=== PATIENT | male | born 1950 | race Caucasian/White ===

== ENCOUNTER 2016-08-14 05:11 | Inpatient (IN) | payer MEDICARE, OTHER ==
[2016-08-12 13:44] LABS: BASOPHILS 0.3 %; BASOPHILS ABSOLUTE 0.02 10/3/uL (0.0-0.16); EOSINOPHILS 3.4 %; HEMATOCRIT 45.8 % (40.0-51.0); HEMOGLOBIN 15.8 g/dL (13.6-17.8); IMMATURE GRANULOCYTES 0.2 %; IMMATURE GRANULOCYTES ABSOLUTE 0.01 10/3/uL (0.0-0.11); LYMPHOCYTES 20.4 %; MEAN CORPUS HGB CONC 34.5 g/dL (32.0-36.0); MEAN CORPUSCULAR HEMOGLOB 32.4 pg (26.0-34.0); MEAN PLATELET VOLUME 11.4 fL (9.2-13.0); MONOCYTES 6.8 %; NEUTROPHILS 68.9 %; NEUTROPHILS ABSOLUTE 4.06 10/3/uL (2.02-8.40); PLATELET COUNT 192 10/3/uL (150-400); RBC DISTRIBUTION WIDTH 13.2 % (12.0-16.0); RED CELL COUNT 4.87 10/6/uL (4.7-6.1); WHITE BLOOD CELLS 5.9 10/3/uL (4.5-10.5)
[2016-08-12 13:45] LABS: MANUAL DIFF NO %
[2016-08-12 13:48] LABS: INTERNATIONAL NORMAL RATI 1.1 UNITS (-); PARTIAL THROMBO TIME 26.5 SEC (22.5-37.2); PROTIME (NOT ORD) 13.6 SEC (12.0-14.5)
[2016-08-12 13:54] LABS: A/G RATIO 1.4 (0.7-1.9); ALBUMIN 3.8 G/DL (3.5-5.0); ALKALINE PHOSPHATASE 105 U/L (45-117); BUN (BLOOD UREA NITROGEN) 11 MG/DL (6-23); CALCIUM, SERUM 9.6 MG/DL (8.5-10.4); CHLORIDE, SERUM 103 MMOL/L (96-112); CO2 (CARBON DIOXIDE) 30 MMOL/L (24-34); GFR AFRICAN AMERICAN 114 ML/MIN (>=60); GFR NON AFRICAN AMERICAN 98 ML/MIN (>=60); GLOBULIN 2.8 G/DL (2.5-4.1); GLUCOSE, SERUM 140 MG/DL (60-99); POTASSIUM, SERUM 4.6 MMOL/L (3.5-5.3); SGOT(AST) 15 U/L (5-40); SGPT(ALT) 25 U/L (5-65); SODIUM, SERUM 144 MMOL/L (135-148); TOTAL BILIRUBIN 1.2 MG/DL (0-1.2); TOTAL PROTEIN 6.6 G/DL (6.0-8.5)
[2016-08-12 15:31] LABS: ASCORBIC ACID (UR NOT ORDER) NEG (NEG); BILIRUBIN, URINE NEGATIVE (NEG); KETONE, URINE NEGATIVE (NEG); LEUKOCYTE ESTERASE(NOT OR SMALL (NEG); WBC (NOT ORDERED) (RFLEX) 6 (0-5)
--- NOTE | ~2016-08-14 | OP ---
Record Of Operation [facility] [address] [place]. [address] NAME: SAIDA SANCHEZ : 50 STATUS : ADM IN PAT#: [id number] AGE: 66 ADM/REG DATE : 08/14/16 MR#: [id number] REPORT SERV DATE: 08/14/16 DICTATED BY: MARIN FIGUEROA DATE: 08/14/16 REPORT STATUS : Draft TRANSCRIBED BY: MODL DATE: 08/14/16 DATE OF PROCEDURE: 08/14/2016 PREOPERATIVE DIAGNOSIS: Severe osteoarthritis of the left hip. POSTOPERATIVE DIAGNOSIS: Severe osteoarthritis of the left hip. PROCEDURE: Left total hip arthroplasty. SURGEON: Marin Figueroa M.D. DUMP ATTENDANT: Ezequiel Major. ANESTHESIA: General endotracheal. ESTIMATED BLOOD LOSS: 300 mL. COMPLICATIONS: None. DRAINS: ConstaVac x1. IMPLANTS: DePuy Philip 58 mm outer diameter cup with a 36 mm inner diameter, +4 lateralized polyethylene liner. The femoral component was size 9 high offset Belle stem with a 36 mm +5 head and neck segment. INDICATIONS FOR SURGERY: Mr. Sanchez is a 66-year-old male with severe osteoarthritis of his left hip. He has had unremitting pain, which has been refractory to medical management. He presents requesting the above-mentioned procedure. Risks of the procedure as detailed in the history and physical and operative consent were discussed prior to proceeding. He fully understood and has requested to proceed. PROCEDURE IN DETAIL: The patient was brought to the operating room and after adequate induction of anesthesia, was positioned in the lateral decubitus position using the hip shoe stamper positioners. All appropriate pressure points were padded and axillary roll was placed. The appropriate operative site was identified and confirmed by both the surgeon and the operating room staff in time out. The hip was then prepped and draped in the usual sterile fashion. A posterior lateral approach to the hip was performed. The skin and subcutaneous tissues were incised sharply using a #10 blade. Electrocautery was used as needed to maintain hemostasis. The fascia reji and fascia over the gluteus kalie were divided in line with the incision. The fibers of the gluteus kalie were split bluntly. The sciatic nerve was identified and carefully protected throughout the remainder of the case. The Charnley retractor was then placed. The hip was placed in internal rotation and the superior border of the piriformis tendon identified. A full thickness capsulotomy was begun Record Of Operation [place] [id number] [facility] [place]. [address] NAME: SAIDA SANCHEZ : 50 STATUS : ADM IN PAT#: [id number] AGE: 66 ADM/REG DATE : 08/14/16 MR#: [id number] REPORT SERV DATE: 08/14/16 DICTATED BY: MARIN FIGUEROA DATE: 08/14/16 REPORT STATUS : Draft TRANSCRIBED BY: WILLARD DATE: 08/14/16 at the superior border of the piriformis tendon and extended anteriorly/inferiorly using an inside/out technique. A portion of the short external rotators were taken down in the capsular exposure. Leg length measurements were then taken. The hip was then dislocated posteriorly. The femoral neck was then marked and resected at the predetermined level from templating using an oscillating saw. Attention was then turned to the femur and the medial aspect of the greater trochanter was debrided of all cortical bone and soft tissue. The intramedullary canal was opened with a triple reamer. The femur was then sequentially reamed to the appropriate size Belle stem. The femur was then sequentially broached, once again to the appropriately sized implant. The femoral neck resection was slightly revised using a calcar mill to bring it to the level of the femoral broach. The broach was then removed. Attention was then turned to the acetabulum and the acetabulum was debrided of all labral remnants, osteophytes, and the medial fibrofatty tissue was debrided and the true medial wall of the acetabulum identified. The acetabulum was then sequentially reamed from a size 43 mm hemispherical reamer to a reamer 1 mm smaller than the final component. At this level there was circumferential bleeding of subchondral bony surface. Any subchondral cysts were curetted. The true acetabular cup was then impacted into the acetabulum and a trial liner placed. A trial reduction was then performed. The leg lengths were felt to be equal. The hip was stable at its limited extension and external rotation and to 90 degrees of flexion and 80 degrees of internal rotation. The hip was also stable in the position of sleep. At this point all trial components were removed and the acetabular hole cork grinder placed in the acetabular shell. The true acetabular liner was then impacted in the clean acetabular shell. The femoral canal was then copiously irrigated with normal saline and suctioned dry. The true femoral stem was then impacted into the femur to an identical depth and identical anteversion of the trial component. A trial reduction was once again performed to assure that there was no change in leg length or stability. The true femoral head ball was then impacted into the clean femoral taper. The acetabulum was inspected to be sure it was free of all foreign matter and the hip reduced. The wound was copiously irrigated with pulsatile lavage and normal saline. The capsule was repaired using interrupted #1 Vicryl suture in [id number] fashion. The short external rotators were repaired using #5 Ethibond in horizontal mattress fashion. Drain placed deep to the fascia. The fascia was closed with interrupted #5 Ethibond sutures in [id number] fashion. The subcutaneous tissues approximated with interrupted 2-0 Vicryl suture and the skin stapled. Sterile dressing applied. The patient awakened and taken to the recovery room in stable condition. POSTOP PLAN: The patient is to be mobilized weightbearing as tolerated with physical therapy. Posterior hip dislocation precautions. The patient is to be on Coumadin and mechanical deep venous thrombosis prophylaxis. Record Of Operation [facility] [address] [facility] [place]. [address] NAME: SAIDA SANCHEZ : 50 STATUS : ADM IN [facility]#: [id number] AGE: 66 ADM/REG DATE : 08/14/16 MR#: [id number] REPORT SERV DATE: 08/14/16 DICTATED BY: MARIN FIGUEROA DATE: 08/14/16 REPORT STATUS : Draft TRANSCRIBED BY: WILLARD DATE: 08/14/16 WIL/WILLARD Marin Figueroa M.D. / [id number] CC: Val Rey NP
[~2016-08-14 05:11] MED LIST: ASA5GR PO; B C POWDER PO; B12250T PO; BC POWDER; COREG6 PO; GLUCCHONDR PO; GLUCOPHAGE1000 MG PO; GLUCOPHXR PO; GLUCPH PO; KDUR10 PO; L40 PO; LOP25 PO; LOTE20 PO; NEUR600 PO; NITROBID2 % TOP; NORCO1 TA1 PO; NTG150 SL; PCET PO; PLAVIX PO; PRAV10 PO; PRAVACHOL40 MG PO; PRILO PO; PRIN10 PO; PROTONIX PO; SYN.05 PO; ULTRAM50 PO; VITAMIN B-121000 MC1 PO; VITAMIN C1000 MG PO; VITAMIN D31000 UNIT PO; Z-PAK PO; ZOCOR10 PO
[2016-08-15 06:13] LABS: INTERNATIONAL NORMAL RATI 1.2 UNITS (-); PROTIME (NOT ORD) 14.7 SEC (12.0-14.5)
[2016-08-15 06:15] LABS: CHLORIDE, SERUM 104 MMOL/L (96-112); CO2 (CARBON DIOXIDE) 32 MMOL/L (24-34); CREATININE 0.59 MG/DL (0.70-1.30); GFR AFRICAN AMERICAN 122 ML/MIN (>=60); GFR NON AFRICAN AMERICAN 106 ML/MIN (>=60); GLUCOSE, SERUM 163 MG/DL (60-99); POTASSIUM, SERUM 3.8 MMOL/L (3.5-5.3); SODIUM, SERUM 142 MMOL/L (135-148)
[2016-08-15 06:16] LABS: BUN (BLOOD UREA NITROGEN) 7 MG/DL (6-23); CALCIUM, SERUM 8.3 MG/DL (8.5-10.4)
[2016-08-15 07:37] LABS: HEMATOCRIT 36.3 % (40.0-51.0)
[2016-08-16 05:16] LABS: INTERNATIONAL NORMAL RATI 1.2 UNITS (-); PROTIME (NOT ORD) 14.7 SEC (12.0-14.5)
[2016-08-16 05:37] LABS: HEMATOCRIT 35.8 % (40.0-51.0); HEMOGLOBIN 12.2 g/dL (13.6-17.8)
[2016-08-16] MEDS ORDERED: C5 (08:48)
[2016-08-16] MEDS ORDERED: PCET PO (08:49)
[2017-01-31] MEDS ORDERED: GLUCOPHAGE1000 MG PO (13:44)
[2017-01-31] MEDS ORDERED: BC ARTHRITIS P1 EACH PO (13:46)
[2017-01-31] MEDS ORDERED: PROVHFA INH (13:47)
[2017-01-31] MEDS ORDERED: DUONEB INH (13:47)
[2017-02-03] MEDS ORDERED: COREG12 PO (14:02)
[2017-02-03] MEDS ORDERED: ASAB PO (14:05)
[2017-02-03] MEDS ORDERED: ELIQUIS 5 MG TAB5 MG PO (14:59)
== END 2016-08-16 17:59 | disposition home or self-care (01) | DRG 470 ==
LOC: SDC/OF 05:11 → PACU 09:25 → 3JRC 10:47
PROVIDERS: Specialist
PROC: 0SRB0JZ Replacement of Left Hip Joint with Synthetic Substitute, Open Approach (ICD-10-PCS; principal; 2016-08-14 06:30)
DX: M16.12 Unilateral primary osteoarthritis, left hip (principal); J44.9 Chronic obstructive pulmonary disease, unspecified; E66.9 Obesity, unspecified; I10 Essential (primary) hypertension; E11.9 Type 2 diabetes mellitus without complications; E03.9 Hypothyroidism, unspecified; G47.33 Obstructive sleep apnea (adult) (pediatric); K21.9 Gastro-esophageal reflux disease without esophagitis; E78.5 Hyperlipidemia, unspecified; Z68.35 Body mass index [BMI] 35.0-35.9, adult; Z96.641 Presence of right artificial hip joint; Z95.5 Presence of coronary angioplasty implant and graft; Z95.1 Presence of aortocoronary bypass graft
CPT/HCPCS: 36415; 72170; 80048; 80053; 81001; 82962; 85014; 85018; 85025; 85610; 85730; 86850; 86900; 86901; 87086; 87641; 88304; 88311; 94660; 97110-GP; 97116-GP; 97162-GP; 97166-GO; 97535-GO; A9270-GY; C1776; J0690; J1170; J1885; J2250; J2405; J2710; J3010

== ENCOUNTER 2016-10-10 18:31 | Observation (INO) | payer MEDICARE, OTHER ==
--- NOTE | ~2016-10-10 | CN ---
Consultation Report [address] [place]. [address] NAME: SAIDA SANCHEZ : 50 STATUS : ADM IN PAT#: [id number] AGE: 66 ADM/REG DATE : 10/10/16 MR#: [id number] REPORT SERV DATE: 10/11/16 DICTATED BY: JULIETACYNDIE MERLIN DATE: 10/10/16 REPORT STATUS : Draft TRANSCRIBED BY: MODL DATE: 10/10/16 DATE OF CONSULTATION: 10/10/2016 REASON FOR CONSULTATION: Consulted for diabetes and pain management. IDENTIFYING DATA: 1. PCP: Debo Carnes. 2. Separator Tender: Dr. Raúl Mora. 3. Cardiothoracic surgeon: Dr. Brad Banks. 4. Orthopedist: In the past, Dr. Marin Figueroa and Dr. Steve Warner. HISTORY OF PRESENT ILLNESS: This is a pleasant 66-year-old gentleman, admitted by Dr. Raúl Mora with atrial fibrillation and flutter with rapid ventricular response. He has a long- standing history of CABG x5 in 2011, coronary artery disease with dyslipidemia, dysrhythmias, peripheral vascular disease, history of heart stents in 2008, as well as COPD with obstructive sleep apnea for which he does not use a CPAP, and hypothyroidism. The hospitalist group has been consulted for diabetes and pain management. The patient's history was obtained through interview with the patient coupled with review of [facility] and [facility]. PAST MEDICAL HISTORY: 1. Osteoarthritis. 2. Hypertension. 3. Diabetes type 2. 4. Coronary artery disease. 5. Dyslipidemia. 6. Dysrhythmias. 7. High cholesterol. 8. Peripheral vascular disease. 9. Gastric reflux. 10.Heart stents in 2008. 11.COPD. 12.Obstructive sleep apnea. 13.Viral hepatitis. 14.Emphysema. 15.Hypothyroidism. 16.Lumbar disk disease. 17.Unstable angina. 18.Previous exposure overseas to [place]. HOME MEDICATIONS: 1. Eliquis 5 mg p.o. b.i.d. 2. Lisinopril 10 mg p.o. daily. Consultation Report [address] [place]. [address] NAME: SAIDA SANCHEZ : 50 STATUS : ADM IN PAT#: [id number] AGE: 66 ADM/REG DATE : 10/10/16 MR#: [id number] REPORT SERV DATE: 10/11/16 DICTATED BY: CYNDIE RENDON DATE: 10/10/16 REPORT STATUS : Draft TRANSCRIBED BY: WILLARD DATE: 10/10/16 3. Lipitor 10 mg p.o. at h.s. 4. Coreg 6.25 mg p.o. b.i.d. 5. Synthroid 50 mcg p.o. daily. 6. Omeprazole 20 mg p.o. daily. 7. Gabapentin 300 mg p.o. b.i.d. 8. Metformin 1000 mg p.o. b.i.d. ALLERGIES: ARE TO NICKEL AND ZOCOR. SOCIAL HISTORY: The patient is . He was a former smoker of four to five packs per day over a period of six years and then cut down to 1-1/2 packs per day for around 40 years and he stopped smoking in 2007. He does drink two to three drinks per day occasionally of alcohol. No illicit drug use. FAMILY HISTORY: 1. Mother is positive for NC, coronary artery disease, and hypertension. 2. Father had an NC in his 50s. 3. Brother is diabetic. 4. Paternal grandmother had cancer. 5. Maternal grandmother had thyroid problems and was diabetic. The patient has one sister and one brother. SURGICAL HISTORY: 1. CABG x5 [place] [address] Brad Banks. 2. Right total hip arthroplasty in 2007. 3. Left total hip arthroplasty in 2016. 4. Repair of fractured hand. 5. Tonsillectomy and adenoidectomy in 1951. 6. [place] teeth removed. 7. L2-S1 laminectomy in 12/[address] Steve Warner. 8. Index finger on the right hand partially removed 1996. 9. Bilateral cataract extraction with IOLI. 10.Left femur fracture repair in 2007. 11.Several cardiac cath PCI interventions, last noted in 2011. REVIEW OF SYSTEMS: Negative other than what is included in HPI. The patient is alert and oriented. No nausea and vomiting. No abdominal pain. No chest pain. No fever. Displays no agitation or confusion. Does get short of breath and presently is slight short of breath with his heart rate noted at 141, atrial fibrillation for which Cardiology has ordered a Cardizem drip. PHYSICAL EXAMINATION: VITAL SIGNS: From today, blood pressure 132/92, respiratory rate 24, heart rate 143, temperature 97.0, O2 saturation 94% on room air. GENERAL: This is a very pleasant 66-year-old male, sitting up on the side of the Consultation Report [place] [address] [place]. [address] NAME: SAIDA SANCHEZ : 50 STATUS : ADM IN PAT#: [id number] AGE: 66 ADM/REG DATE : 10/10/16 MR#: [id number] REPORT SERV DATE: 10/11/16 DICTATED BY: CYNDIE RENDON DATE: 10/10/16 REPORT STATUS : Draft TRANSCRIBED BY: WILLARD DATE: 10/10/16 bed with family at bedside. Slight shortness of breath, but no acute distress. NEURO: Head is atraumatic, normocephalic. He is alert and oriented x3. His cranial nerves II through XII are intact. His mood is pleasant and appropriate. NECK: Supple. Trachea is midline. No JVD noted. No obvious thyromegaly or lymphadenopathy. EENT: Sclerae are nonicteric. Pupils are equal and reactive to light. Nares are patent. Mucous membranes moist. Tongue is midline without deviation. Soft palate rises equally on phonation. CHEST: No pain with palpation. LUNGS: Clear to auscultation bilaterally. Normal respiratory effort. He does get a little short of breath noted with conversation. CARDIOVASCULAR: S1, S2. No obvious murmurs, rubs, or gallops. Rhythm is irregular. EKG is noting rhythm at a rate of 141 with atrial fibrillation, some intermittent sinus beats noted. ABDOMEN: Obese, soft, nontender. Bowel sounds are active. No palpable organomegaly. Last bowel movement 10/09/2016. EXTREMITIES: Diminished distal pulses. No calf tenderness. The patient is on Eliquis daily that is sufficient for DVT prophylaxis. SKIN: Warm and dry. No unusual rashes or lesions. Normal color and turgor. PSYCH: The patient is pleasant and cooperative. Appropriate mood and affect. LABORATORY DATA: Presently, labs are pending. We do have the results of present blood sugar at 201. White blood cell 5.7, hemoglobin 13.6, hematocrit 41.3, platelets 147. We have a BMP and INR as well as TSH and free T4 pending. Also, PA and lateral chest x-ray is ordered and pending by Cardiology. 10/10/2016, EKG showed intermittent sinus beats with noted atrial fibrillation with a rate at 141. The patient has had several cardiac caths with PCI and last noted in 2011. His EF was 50%. In 2016, the LVEF was noted at 60%. ASSESSMENT AND PLAN: 1. Diabetes type 2. Aware. The patient states he checks his blood sugars normally twice a day, but he has been out of strips, so he has not checked his blood sugar recently. He is on a cardiac low-sodium diet. We will add 1800 calorie, ADA since he is diabetic. Have primary special educator discuss diet as well as appropriate monitoring of his blood sugars. He is on a sliding scale level 1. Blood sugars before meals and at bedtime, and we will check a blood sugar at 2 a.m. x1. and add hypoglycemic protocol. Also, he is scheduled to be n.p.o. after midnight. We will be holding his metformin and check a hemoglobin A1c. 2. Chronic obstructive pulmonary disease. The patient has a history also of obstructive sleep apnea. He has a CPAP device for which he does not use. He is not on any medications at home for chronic obstructive pulmonary disease or emphysema. He is not Consultation Report [address] [place]. [address] NAME: SAIDA SANCHEZ : 50 STATUS : ADM IN [facility]#: [id number] AGE: 66 ADM/REG DATE : 10/10/16 MR#: [id number] REPORT SERV DATE: 10/11/16 DICTATED BY: CYNDIE RENDON DATE: 10/10/16 REPORT STATUS : Draft TRANSCRIBED BY: MODL DATE: 10/10/16 on oxygen at home. We will keep O2 as needed to keep his sats 92% or greater. He will have continuous O2 saturation monitoring since he has a history of sleep apnea. 3. Hypothyroidism. The patient is on Synthroid daily at home, but he states he takes Synthroid only two times to three times per week. We will check a TSH and a free-T4 on labs and continue a daily dose of Synthroid. 4. Hypertension. The patient has a history of coronary artery disease. He is presently in atrial fibrillation with rapid ventricular response. He will be n.p.o. after midnight for an a.m. ELLE, possible cardioversion, per Dr. Mora. He will be continued on Coreg, Eliquis, lisinopril, and he will be placed on Cardizem drip per cardiac protocol for Cardiology. 5. Hypercholesterolemia. Aware. The patient will be continued on his daily dose of Lipitor. 6. Gastroesophageal reflux disease. The patient is on omeprazole daily while inpatient. He will be on Protonix daily. 7. Neuropathy. Aware. We will continue the patient's daily medication of Neurontin. LABS: CMP, magnesium, phosphorus, CBC, PT/INR, hemoglobin A1c, TSH, free T4, and PA and lateral ordered by Cardiology. Laboratory data is pending. Labs will be ordered again in a.m. prior to procedure and PA and lateral is pending. The patient is noted to drink alcohol at times daily. Presently, we will continue to monitor and intervene appropriate if he has any alcohol withdrawal symptoms. The Hospitalist Group would like to thank you for this consultation. Please let us know if we could be of any further assistance. SUZAN Cyndie Rendon NP / [id number] CC: Val Garrett VICKY L
--- NOTE | ~2016-10-10 | HP ---
History And Physical [place] [id number] [facility] [place]. [address] NAME: SAIDA SANCHEZ : 50 STATUS : ADM IN [facility]#: [id number] AGE: 66 ADM/REG DATE : 10/10/16 MR#: [id number] REPORT SERV DATE: 10/11/16 DICTATED BY: VIOLETTA VERA DATE: 10/10/16 REPORT STATUS : Draft TRANSCRIBED BY: WILLARD DATE: 10/10/16 DATE OF ADMISSION: 10/10/2016 A direct admit from my office to [facility] inpatient bed. He will be admitted to a telemetry floor bed in the [facility]. HISTORY OF PRESENT ILLNESS: Mr. Sanchez is a 66-year-old white male, who has a history of remote bypass surgery. The patient has had a stress test in 2016 negative for ischemia. Ejection fraction by echo was normal at that time. He had a hip surgery two months ago. He did take oral anticoagulation for six weeks. The patient comes in today with profound shortness of breath, which has been ongoing for the last month. His EKG shows atrial flutter with a heart rate of 143 beats per minute. PAST MEDICAL HISTORY: As outlined above. We will also include there, diabetes, dyslipidemia, and hypertension. ALLERGIES: NONE. MEDICATIONS: Include, atorvastatin 10 mg daily, Coreg 6.25 mg twice a day. The patient takes Lasix 40 mg daily, lisinopril 10 mg daily. He does take metformin 1000 mg twice a day, omeprazole 20 mg daily, potassium chloride 10 mEq daily, Synthroid 50 mcg daily, tramadol 50 mg three times a day as needed, vitamin D2 50,000 unit capsule once weekly, gabapentin 300 mg twice daily and Dilaudid 4 mg every four to six hours as needed. SOCIAL HISTORY: He is a former smoker. FAMILY HISTORY: Positive for heart disease. SURGICAL HISTORY: As outlined above. REVIEW OF SYSTEMS: Otherwise all negative. PHYSICAL EXAMINATION: VITAL SIGNS: His heart rate 143 and blood pressure 132/91. His weight, 287 pounds. GENERAL: The patient is an overweight white male. He is alert and oriented x3. Mildly tachypneic. HEENT: Pupils are equal, round, and reactive to light and accommodation. Extraocular muscles are intact. NECK: Supple. Trachea midline. No carotid bruits. CHEST: Clear. HEART: PMI midclavicular line. Tachycardic. No significant murmur. ABDOMEN: Protuberant, soft. EXTREMITIES: No clubbing, cyanosis, or edema. NEURO: Exam is nonfocal. History And Physical [address] [address] NAME: SAIDA SANCHEZ : 50 STATUS : ADM IN [facility]#: [id number] AGE: 66 ADM/REG DATE : 10/10/16 MR#: [id number] REPORT SERV DATE: 10/11/16 DICTATED BY: VIOLETTA VERA DATE: 10/10/16 REPORT STATUS : Draft TRANSCRIBED BY: WILLARD DATE: 10/10/16 DATA: His 12-lead EKG shows atrial flutter at 143 beats per minute. CLINICAL IMPRESSIONS: 1. Rapid atrial flutter complicated by shortness of breath. 2. Remote bypass surgery with preserved ejection fraction a year ago. 3. Diabetes, hypertension, and dyslipidemia. PLAN: We will admit the patient downtown and start him on diltiazem drip and Eliquis 5 mg twice daily. The patient will be kept n.p.o. after midnight for planned ELLE cardioversion tomorrow. We will also check thyroid function as well as a PA and lateral chest film. Umer/WILLARD Violetta Vera M.D. / [id number] CC: Val Garrett NP
--- NOTE | ~2016-10-10 | OP ---
Record Of Operation [facility] [address] [place]. [address] NAME: SAIDA SANCHEZ : 50 STATUS : DIS Ayse PAT#: [id number] AGE: 66 ADM/REG DATE : 10/10/16 MR#: [id number] REPORT SERV DATE: 10/14/16 DICTATED BY: MARIN RODGERS DATE: 10/11/16 REPORT STATUS : Draft TRANSCRIBED BY: WILLARD DATE: 10/11/16 DATE OF PROCEDURE: 10/11/2016 Transesophageal Echocardiogram And Cardioversion Report INDICATIONS: Atrial flutter. PROCEDURE DESCRIPTION: After informed consent, the patient was sedated with propofol by the Anesthesia Department. The transesophageal probe was placed on the first attempt. A single defibrillation was delivered. There were no immediate complications. TRANSESOPHAGEAL ECHOCARDIOGRAM: 2D: 1. The aortic valve is mildly calcified with preserved leaflet mobility. 2. There is no evidence of left atrial appendage thrombus. 3. There is mild global left ventricular systolic dysfunction with EF 45%. 4. There is moderate mitral annular calcification. Mitral valve leaflet mobility appears preserved. 5. The left atrium is mildly enlarged. 6. Right-sided chambers are normal in size. 7. The tricuspid valve is not well visualized. 8. There is no evidence of pericardial effusion. DOPPLER: Pulse wave Doppler in the left atrial appendage is greater than 40 cm/second. COLOR-FLOW: There is mild aortic, mitral, and tricuspid regurgitation. CARDIOVERSION: A single synchronized 200-joule biphasic defibrillation was delivered. Atrial flutter converted to normal sinus rhythm. AURELIO/WILLARD Marin Rodgers M.D. / [id number] CC: Val Garrett Vicky L
[~2016-10-10 18:31] MED LIST changes: +C5
[2016-10-10 23:00] LABS: BASOPHILS 0.2 %; BASOPHILS ABSOLUTE 0.01 10/3/uL (0.0-0.16); EOSINOPHILS 4.2 %; EOSINOPHILS ABSOLUTE 0.24 10/3/uL (0.0-0.53); HEMATOCRIT 41.3 % (40.0-51.0); HEMOGLOBIN 13.6 g/dL (13.6-17.8); IMMATURE GRANULOCYTES 0.2 %; IMMATURE GRANULOCYTES ABSOLUTE 0.01 10/3/uL (0.0-0.11); LYMPHOCYTES 18.9 %; LYMPHOCYTES ABSOLUTE 1.08 10/3/uL (0.67-4.30); MEAN CORPUS HGB CONC 32.9 g/dL (32.0-36.0); MEAN CORPUSCULAR HEMOGLOB 31.3 pg (26.0-34.0); MEAN CORPUSCULAR VOLUME 94.9 fL (80-100); MEAN PLATELET VOLUME 11.3 fL (9.2-13.0); MONOCYTES 5.9 %; MONOCYTES ABSOLUTE 0.34 10/3/uL (0.21-1.20); NEUTROPHILS 70.6 %; NEUTROPHILS ABSOLUTE 4.04 10/3/uL (2.02-8.40); PLATELET COUNT 147 10/3/uL (150-400); RBC DISTRIBUTION WIDTH 13.5 % (12.0-16.0); RED CELL COUNT 4.35 10/6/uL (4.7-6.1); WHITE BLOOD CELLS 5.7 10/3/uL (4.5-10.5)
[2016-10-10 23:01] LABS: MANUAL DIFF NO %
[2016-10-10 23:02] LABS: INTERNATIONAL NORMAL RATI 1.2 UNITS (-); PROTIME (NOT ORD) 14.8 SEC (12.0-14.5)
[2016-10-10 23:21] LABS: A/G RATIO 1.2 (0.7-1.9); ALBUMIN 3.6 G/DL (3.5-5.0); ALKALINE PHOSPHATASE 97 U/L (45-117); CALCIUM, SERUM 9.1 MG/DL (8.5-10.4); CHLORIDE, SERUM 110 MMOL/L (96-112); CREATININE 0.79 MG/DL (0.70-1.30); FREE T4 0.91 NG/DL (0.76-1.46); GFR AFRICAN AMERICAN 108 ML/MIN (>=60); GFR NON AFRICAN AMERICAN 94 ML/MIN (>=60); SGPT(ALT) 24 U/L (5-65); SODIUM, SERUM 148 MMOL/L (135-148); TOTAL PROTEIN 6.6 G/DL (6.0-8.5)
[2016-10-10 23:26] LABS: BUN (BLOOD UREA NITROGEN) 19 MG/DL (6-23); CO2 (CARBON DIOXIDE) 27 MMOL/L (24-34); GLUCOSE, SERUM 198 MG/DL (60-99); SGOT(AST) 20 U/L (5-40); TOTAL BILIRUBIN 0.6 MG/DL (0-1.2)
[2016-10-11 04:31] LABS: BASOPHILS 0.3 %; BASOPHILS ABSOLUTE 0.02 10/3/uL (0.0-0.16); EOSINOPHILS 4.8 %; EOSINOPHILS ABSOLUTE 0.28 10/3/uL (0.0-0.53); HEMATOCRIT 40.2 % (40.0-51.0); HEMOGLOBIN 13.1 g/dL (13.6-17.8); IMMATURE GRANULOCYTES 0.2 %; IMMATURE GRANULOCYTES ABSOLUTE 0.01 10/3/uL (0.0-0.11); LYMPHOCYTES 22.4 %; LYMPHOCYTES ABSOLUTE 1.31 10/3/uL (0.67-4.30); MEAN CORPUS HGB CONC 32.6 g/dL (32.0-36.0); MEAN CORPUSCULAR HEMOGLOB 31.2 pg (26.0-34.0); MEAN CORPUSCULAR VOLUME 95.7 fL (80-100); MEAN PLATELET VOLUME 11.6 fL (9.2-13.0); MONOCYTES 9.7 %; MONOCYTES ABSOLUTE 0.57 10/3/uL (0.21-1.20); NEUTROPHILS 62.6 %; NEUTROPHILS ABSOLUTE 3.67 10/3/uL (2.02-8.40); PLATELET COUNT 145 10/3/uL (150-400); RBC DISTRIBUTION WIDTH 13.7 % (12.0-16.0); WHITE BLOOD CELLS 5.9 10/3/uL (4.5-10.5)
[2016-10-11 04:33] LABS: MANUAL DIFF NO %
[2016-10-11 04:38] LABS: INTERNATIONAL NORMAL RATI 1.2 UNITS (-); PROTIME (NOT ORD) 15.2 SEC (12.0-14.5)
[2016-10-11 04:55] LABS: A/G RATIO 1.2 (0.7-1.9); ALBUMIN 3.4 G/DL (3.5-5.0); ALKALINE PHOSPHATASE 95 U/L (45-117); BUN (BLOOD UREA NITROGEN) 19 MG/DL (6-23); CALCIUM, SERUM 8.6 MG/DL (8.5-10.4); CHLORIDE, SERUM 108 MMOL/L (96-112); CO2 (CARBON DIOXIDE) 28 MMOL/L (24-34); CREATININE 0.75 MG/DL (0.70-1.30); FREE T4 0.92 NG/DL (0.76-1.46); GFR AFRICAN AMERICAN 111 ML/MIN (>=60); GFR NON AFRICAN AMERICAN 96 ML/MIN (>=60); GLOBULIN 2.9 G/DL (2.5-4.1); PHOSPHORUS, SERUM 3.9 MG/DL (2.5-4.5); POTASSIUM, SERUM 3.8 MMOL/L (3.5-5.3); SGOT(AST) 19 U/L (5-40); SGPT(ALT) 21 U/L (5-65); SODIUM, SERUM 142 MMOL/L (135-148); TOTAL BILIRUBIN 0.6 MG/DL (0-1.2); TOTAL PROTEIN 6.3 G/DL (6.0-8.5)
[2016-10-11 05:08] LABS: GLUCOSE, SERUM 145 MG/DL (60-99)
[2016-10-11] MEDS ORDERED: ELIQUIS 5 MG TAB5 MG PO (17:21)
[2016-10-11] MEDS ORDERED: LIPITOR10 PO (17:22)
[2016-10-11] MEDS ORDERED: NEUR300 PO (17:23)
[2016-10-11] MEDS ORDERED: COREG6 PO (17:23)
[2016-10-11] MEDS ORDERED: SYN.05 PO (17:24)
[2016-10-11] MEDS ORDERED: PRILOSEC40 MG PO (17:25)
[2016-10-11] MEDS ORDERED: ZESTRIL10 MG PO (17:25)
[2016-10-11] MEDS ORDERED: KLOR-CON M2020 MEQ PO (17:26)
[2016-10-11] MEDS ORDERED: L40 PO (17:26)
[2017-01-31] MEDS ORDERED: GLUCOPHAGE1000 MG PO (13:44)
[2017-01-31] MEDS ORDERED: BC ARTHRITIS P1 EACH PO (13:46)
[2017-01-31] MEDS ORDERED: PROVHFA INH (13:47)
[2017-01-31] MEDS ORDERED: DUONEB INH (13:47)
[2017-02-03] MEDS ORDERED: COREG12 PO (14:02)
[2017-02-03] MEDS ORDERED: ASAB PO (14:05)
[2017-02-03] MEDS ORDERED: ELIQUIS 5 MG TAB5 MG PO (14:59)
== END 2016-10-11 18:05 | disposition home or self-care (01) ==
LOC: 5NO 18:31
PROVIDERS: Internal Medicine Interventional Cardiology
PROC: B24BZZ4 Ultrasonography of Heart with Aorta, Transesophageal (ICD-10-PCS; principal; 2016-10-11)
PROC: 5A2204Z Restoration of Cardiac Rhythm, Single (ICD-10-PCS; 2016-10-11)
DX: I48.92 Unspecified atrial flutter (principal); I08.0 Rheumatic disorders of both mitral and aortic valves; I10 Essential (primary) hypertension; E78.5 Hyperlipidemia, unspecified; Z87.891 Personal history of nicotine dependence; Z82.49 Family history of ischemic heart disease and other diseases of the circulatory system; Z83.3 Family history of diabetes mellitus; M19.90 Unspecified osteoarthritis, unspecified site; E78.00 Pure hypercholesterolemia, unspecified; E11.51 Type 2 diabetes mellitus with diabetic peripheral angiopathy without gangrene; K21.9 Gastro-esophageal reflux disease without esophagitis; Z95.5 Presence of coronary angioplasty implant and graft; J44.9 Chronic obstructive pulmonary disease, unspecified; G47.33 Obstructive sleep apnea (adult) (pediatric); Z86.19 Personal history of other infectious and parasitic diseases; M51.36 Other intervertebral disc degeneration, lumbar region; E03.9 Hypothyroidism, unspecified; I25.118 Atherosclerotic heart disease of native coronary artery with other forms of angina pectoris; Z96.643 Presence of artificial hip joint, bilateral; Z98.890 Other specified postprocedural states; Z90.89 Acquired absence of other organs; Z98.41 Cataract extraction status, right eye; Z98.42 Cataract extraction status, left eye; Z96.1 Presence of intraocular lens; Z79.84 Long term (current) use of oral hypoglycemic drugs; Z79.891 Long term (current) use of opiate analgesic; Z79.899 Other long term (current) drug therapy
CPT/HCPCS: 71020; 80053; 82962; 83036; 83735; 84100; 84439; 84443; 85025; 85610; 92960; 93005; 93312; 93320; 93325; 96374; A9270-GY; G0378